=== PATIENT | male | born 1970 | race Caucasian/White ===

== ENCOUNTER 2017-07-04 07:05 | Day surgery (SDC) | payer OTHER ==
[~2017-07-04] VITALS: Ht 172.7 cm; Wt 124.7 kg
--- NOTE | 2017-07-04 10:03 | NUR ---
07/04/17 1003 Lora Benavidez 8364-PATIENT ARRIVED TO PACU ON 6L MASK O2 SAT 100% NONAROUSABLE. DRESSING TO LEFT HAND CDI. ELEVATED ON PILLOW. 1001-PATIENT AROUSING EYES OPEN, ABLE TO WIGGLE FINGERS REPORTS NUMBNESS/TINGLING DENIES PAIN DOZES BACK TO SLEEP.
[2017-07-04] MEDS ORDERED: IBUPROFEN600 MG PO (10:13)
[2017-07-04] MEDS ORDERED: OXYCODON-ACETA1 EAC2 PO (10:14)
[2017-07-04] MEDS ORDERED: MAPAP325 MG PO (10:14)
--- NOTE | 2017-07-04 10:39 | NUR ---
CRACKERS AND ICED WATER GIVEN. CALL LIGHT W/IN REACH. FAMILY @ BS.
--- NOTE | 2017-07-04 12:50 | NUR ---
PT STEADY ON FEET WITH ONE PERSON ASSIST. PT DRESSES SELF. PT REPORTING 3/10 PAIN THAT IS TOLERABLE. PT DENIES NAUSEA AND VOIDS WITHOUT DIFFICULTY. DISCHARGE INSTRUCTIONS REVIEWED WITH PT AND . QUESTIONS ANSWERED. PT AND VERBALIZE UNDERSTANDING OF DISCHARGE INSTRUCTIONS.
--- NOTE | 2017-07-05 06:31 | OR ---
[facility] [address] [place], [place] [address] Signed DATE OF OPERATION: 07/04/2017 SURGEON: Smita Esteban MD PREOPERATIVE DIAGNOSIS: Left carpal tunnel syndrome. POSTOPERATIVE DIAGNOSIS: Left carpal tunnel syndrome. PROCEDURE: Left carpal tunnel release. ANESTHESIA: General with tourniquet (Shade Bajwa CRNA). INDICATION: This 46-year-old white man has a BMI of 41.8, is a patient of Dr. Kevin Kaminski. He has had rather typical left carpal tunnel symptoms. He has had symptoms on the right as well, but the right hand is not as severe as the left. He is ruuju-xwgi-svvodwgo. His symptoms of pain in the left hand are in the distribution of the median nerve. He has nocturnal symptoms as well. He has had this problem for many years. Twenty years ago, he tried wrist splints, which were not that beneficial. He has undergone neurologic testing by Dr. [place] confirming left carpal tunnel syndrome (median neuropathy at the wrist). Right-sided testing could not be undertaken due to equipment malfunction at the time, however, he is anticipating that to be done in the near future. He is admitted at this time to undergo a left carpal tunnel release. Understand the risks of bleeding, infection, nerve injury, failure to cure his problems, and recurrent disease. Understanding this, he wished to proceed. FINDINGS: IV access was impressively difficult to be obtained in the left forearm or wrist and therefore, a Juan block anesthetic was not feasible. On that basis, he underwent general anesthesia. A tourniquet was used as usual and good exsanguination of the arm was accomplished with a bloodless field. The transverse carpal ligament was easily identified and tense and firm as would be expected. The underlying median nerve had good health without sign of hourglass deformity or other particular problem. Transection of the transverse carpal ligament was extended to the distal wrist crease and onto the palmar fat. DESCRIPTION OF PROCEDURE: The patient was brought to the operating room, given a general LMA-type anesthetic. Preoperative antibiotic Ancef was given. Sequential compression device and stockings Electronically Signed By: SMITA ESTEBAN MD 07/05/17 0631 PATIENT NAME: MELLO AGUILAR OPERATIVE REPORT DATE OF : 74 PHYSICIAN: SMITA ESTEBAN MD REPORT #: [id number] REPORT IS CONFIDENTIAL AND NOT TO BE RELEASED WITHOUT AUTHORIZATION [facility] [address] [place] [id number] Signed were used. Exsanguination of the left hand and arm up to the level of the tourniquet above the elbow was undertaken by myself with an Esmarch bandage. The tourniquet was inflated to 250 mmHg pressure. Removal of the Esmarch bandage showed a well exsanguinated extremity. The hand and forearm were prepared with a chlorhexidine solution and draped sterilely. A rolled blue towel was placed behind the wrist and a hand retractor was used to splay the palm with optimal exposure. A curvilinear incision was made near the thenar eminence and the space between the thenar and hypothenar creases. Dissection was carried through the dermis sharply and through the palmaris longus fascial coalescence down to the transverse carpal ligament. This was incised and a small bit of muscle incised as well. Once the median nerve was identified beneath it, the hemostat was placed beneath the transverse carpal ligament and it was transected onto the palmar fascia without problem. The nerve itself appeared reasonably healthy without sign of hourglass deformity or other abnormality. Hemostat was then placed more proximally and the ligament transected under direct visualization with a 15 blade and more proximally with tenotomy scissors under direct visualization. The motor branch was never actually seen. A small amount of needlepoint electrocautery was used to the muscle of the thenar eminence. A 10 mL of 0.25% Marcaine with epinephrine was injected locally. The skin was then closed with interrupted 2-0 nylon suture. A Xeroform gauze was applied as was a small rolled gauze. Subsequently, a Flexicon wrap and a cock-up wrist splint. An Gonzales wrap was then applied. Pressure was applied to the palmar aspect and the tourniquet was deflated. Pressure was applied to the operative site until rubor presented and receded. He was ultimately extubated and transported to recovery room in good condition having suffered no complications. Sponge, needle, and instruments counts reported as correct x3. MD TAMI Dunaway/MODL /[id number] cc: Smita [place] MD Electronically Signed By: SMITA ESTEBAN MD 07/05/17 0631 PATIENT NAME: MELLO AGUILAR OPERATIVE REPORT DATE OF : 74 PHYSICIAN: SMITA ESTEBAN MD REPORT #: [id number] REPORT IS CONFIDENTIAL AND NOT TO BE RELEASED WITHOUT AUTHORIZATION [facility] [address] [facility] [place] [address] Signed Kevin Kaminski MD Electronically Signed By: SMITA ESTEBAN MD 07/05/17 0631 PATIENT NAME: MELLO AGUILAR OPERATIVE REPORT DATE OF : 74 PHYSICIAN: SMITA ESTEBAN MD REPORT #: [id number] REPORT IS CONFIDENTIAL AND NOT TO BE RELEASED WITHOUT AUTHORIZATION
--- NOTE | 2017-07-05 07:18 | NUR ---
PT'S AND MOTHER IN, MOTHER SOMEWHAT ANXIOUS. LAST TIME SHE WAS AT [facility], HER PASSED. PART OF THE REASON SHE IS HERE TODAY. RN SHIVANI IN TO FINISH PREP FOR SURGERY. I EXTENDED A BLESSING, WILL FOLLOW NEEDED.
== END 2017-07-04 12:50 | disposition home or self-care (01) ==
LOC: OPS 07:05 → DS 07:05 → OPS 08:15
PROVIDERS: Surgery
PROC: 01N50ZZ Release Median Nerve, Open Approach (ICD-10-PCS; principal; 2017-07-04 08:15)
DX: G56.02 Carpal tunnel syndrome, left upper limb (principal); J45.909 Unspecified asthma, uncomplicated; Z88.0 Allergy status to penicillin; Z98.818 Other dental procedure status
CPT/HCPCS: 01810; J0690; J2405; J2704; J3010; J7120

== ENCOUNTER 2017-07-25 08:48 | Day surgery (SDC) | payer OTHER ==
[~2017-07-25] VITALS: Ht 172.7 cm; Wt 124.7 kg
[~2017-07-25 08:48] MED LIST: IBUPROFEN600 MG PO; MAPAP325 MG PO; OXYCODON-ACETA1 EAC2 PO
--- NOTE | 2017-07-25 11:36 | NUR ---
PT RESTING COMFORTABLY, WAITING PATIENTLY FOR SURGERY. HIS MOTHER AND DAUGHTER BY HIS SIDE. HE HAS HAD THE OTHER HAND OPERATED ON A LITTLE OVER A MONTH AGO AND SEEMS VERY PLEASED WITH THE RESULTS. NO QUESTIONS, PT REQUESTED PRAYER. WILL FOLLOW NEEDED
[2017-07-25] MEDS ORDERED: HYDROCODON-ACE1 EA10 PO (12:24)
[2017-07-25] MEDS ORDERED: IBUPROFEN600 MG PO (12:24)
[2017-07-25] MEDS ORDERED: MAPAP325 MG PO (12:25)
[2017-07-25] MEDS ORDERED: CEFAZOLIN SODIU IV (12:25)
--- NOTE | 2017-07-25 17:55 | OR ---
[facility] [address] [facility] [place] [address] Signed DATE OF OPERATION: 07/25/2017 SURGEON: mSita Esteban MD PREOPERATIVE DIAGNOSIS: Right carpal tunnel syndrome. POSTOPERATIVE DIAGNOSIS: Right carpal tunnel syndrome. PROCEDURE: Right carpal tunnel release. SURGEON: Smita Esteban MD. ANESTHESIA: Belvue block with sedation (Shade Oakes CRNA) and local 5 mL of 0.25% Marcaine without epinephrine. INDICATION: This 46-year-old, white man is a patient of Dr. Kevin Kaminski and has been identified as having bilateral carpal tunnel syndrome. He has undergone left carpal tunnel release a few weeks ago. Neurologic testing confirmed median neuropathy at the wrist bilaterally. He is admitted at this time to undergo right carpal tunnel release. Understand the risks of bleeding, infection, nerve injury, failure to cure his symptoms, and other unforeseen complications and he wishes to proceed. FINDINGS: The transverse carpal ligament was impressively dense and thickened. The underlying nerve did not look to be deformed in any way. Complete release was undertaken from the distal wrist crease down to the palmar fat. DESCRIPTION OF PROCEDURE: The patient was brought to the operating room, given a Juan block anesthetic. Preoperative antibiotic Ancef was given and sequential compression device stockings used. The exsanguination for the Belvue block was quite good. The right hand and arm were prepared with a chlorhexidine solution and draped sterilely. A rolled blue towel was placed behind the wrist and the malleable metal hand retractor used to expose the right palm nicely. The curvilinear incision was made rather small in size between the thenar Electronically Signed By: SMITA ESTEBAN MD 07/25/17 1755 PATIENT NAME: MELLO AGUILAR OPERATIVE REPORT DATE OF : 74 PHYSICIAN: SMITA ESTEBAN MD REPORT #: [id number] REPORT IS CONFIDENTIAL AND NOT TO BE RELEASED WITHOUT AUTHORIZATION [facility] [address] [place], [place] [address] Signed and hypothenar creases. Dissection carried through the subcutaneous tissue and along the palmaris longus longitudinally encountering ultimately the transverse carpal ligament. This was incised with all due care using loupe magnification and headlight illumination, allowing for insinuation of a mosquito hemostat beneath the transverse carpal ligament. The ligament was transected onto the palmar fat revealing the underlying median nerve. The median nerve did not appear to be deformed in any way. Hemostat was then placed proximally and under direct visualization, the transverse carpal ligament transected proximally as well. Tenotomy scissors used to transect it more proximally to the distal wrist crease. Good release was noted. The ligament was impressively thick. Irrigation was undertaken. There was no sign of tumor or other problem with the nerve. The skin was closed with interrupted 2-0 nylon suture. Xeroform gauze and a Flexicon dressing were applied as was a cock-up wrist splint and an Gonzales wrap. Pressure was applied to the operative site and the tourniquet was withdrawn at 22 minutes. Pressure was maintained on the operative site until rubor returned and receded from the hand. He was then taken to recovery room in good condition and suffered no complication. Sponge, needle, and instruments counts reported correct x3. MD TAMI Dunaway/GRACIEL /[id number] cc: MD Kevin Pate MD Electronically Signed By: SMITA ESTEBAN MD 07/25/17 1755 PATIENT NAME: MELLO AGUILAR OPERATIVE REPORT DATE OF : 74 PHYSICIAN: SMITA ESTEBAN MD REPORT #: [id number] REPORT IS CONFIDENTIAL AND NOT TO BE RELEASED WITHOUT AUTHORIZATION
== END 2017-07-25 13:21 | disposition home or self-care (01) ==
LOC: DS 08:48
PROVIDERS: Surgery
PROC: 01N50ZZ Release Median Nerve, Open Approach (ICD-10-PCS; principal; 2017-07-25 10:30)
DX: G56.01 Carpal tunnel syndrome, right upper limb (principal); J45.909 Unspecified asthma, uncomplicated; Z88.0 Allergy status to penicillin; Z98.818 Other dental procedure status; Z79.899 Other long term (current) drug therapy
CPT/HCPCS: 01810; J0690; J2704; J7120

== ENCOUNTER 2020-08-06 06:27 | Day surgery (SDC) | payer OTHER ==
[~2020-08-06] VITALS: Ht 172.7 cm; Wt 125.0 kg
[~2020-08-06 06:27] MED LIST changes: +CEFAZOLIN SODIU IV; +HYDROCODON-ACE1 EA10 PO
--- NOTE | 2020-08-06 09:41 | NUR ---
08/06/20 0941 Samantha Tavreas 0928- PT ARRIVES TO PACU NONAROUSABLE TO NOXIOUS STIMULI WITH AN OPA IN PLACE. RESP EVEN AND UNLABORED. PT SOUNDS LIKE HE IS OBSTRUCTING. OXYGEN SAT LOW TO MID 90'S ON 6L VIA MASK. JAW THRUST PERFORMED AND OXYGEN SAT INCREASED TO THE HIGH 90'S ON 6L VIA MASK. 0932- PT AROUSING TO NOXIOUS STIMULI. PT OPENS HIS EYES. PT INSTRUCTED TO OPEN HIS MOUTH. PT IS ABLE TO DO THIS AND OPA REMOVED. OXYGEN MASK REPLACED.
[2020-08-06] MEDS ORDERED: ACETAMINOPHEN500 MG PO (09:54)
[2020-08-06] MEDS ORDERED: IBUPROFEN600 MG PO (09:54)
[2020-08-06] MEDS ORDERED: PERCOCET 7.5-31 EACH PO (09:55)
--- NOTE | 2020-08-06 10:27 | NUR ---
PT ALERT, ORIENTED AND SUPPORTED BY HIS ENEDELIA. SHE WILL RETURN AT [place]. PT SOMEWHAT ANXIOUS, ALL QUESTIONS ASKED ANSWERED. DR ESTEBAN IN, GAVE BLESSING AND WILL FOLLOW NEEDED
--- NOTE | 2020-08-06 12:02 | NUR ---
STEADY ON FEET WITH ONE PERSON STAND BY ASSIST FOR AMBULATION TO BR. PT VOIDS 450 ML CLEAR YELLOW URINE. CONTINUES TO DENY NAUSEA AND REPORTS 2/10 PAIN.
--- NOTE | 2020-08-09 12:00 | OR ---
[facility] [address] [place], [place] [address] Signed DATE OF OPERATION: 08/06/2020 SURGEON: Smita Esteban MD PREOPERATIVE DIAGNOSES: 1. Incarcerated umbilical hernia. 2. Morbid obesity. POSTOPERATIVE DIAGNOSES: 1. Incarcerated umbilical hernia. 2. Morbid obesity. 3. Incarcerated omentum. PROCEDURE: 1. Repair of incarcerated non-strangulated umbilical hernia. 2. Implantation of Prolene mesh underlay technique. ANESTHESIA: General endotracheal; Jono Masters CRNA and local 20 mL of 0.25% Marcaine with epinephrine. INDICATION: This 49-year-old morbidly obese white man is a patient of Dr. Edil Kaminski. He has had an increasingly painful nonreducible umbilical hernia. He has no problems of urinary outlet obstructive symptoms. No problem of constipation or chronic cough, only morbid obesity. He appears to have a nonreducible umbilical hernia. He shows no sign of bowel obstruction. He is admitted to undergo repair of the hernia. He understands the risks of bleeding, infection, recurrence, and other unforeseen complications. FINDINGS: Indeed an incarcerated hernia was noted. The incarcerated viscus was omentum. Photographs were taken. The fascial defect was approximately 3 cm. Reduction of the omentum was able to be accomplished with partial fascial release superiorly. The redundant hernia sac was amputated and the hernia sac closed. A space was developed in the properitoneal space allowing for implantation of Prolene mesh with a 4 cm overlap and ultimately reapproximation of the fascia. DESCRIPTION OF PROCEDURE: The patient was brought to the operating room, given a general endotracheal anesthetic. Preoperative antibiotic Ancef was given. Sequential compression device stockings were Electronically Signed By: SMITA ESTEBAN MD 08/09/20 [facility] PATIENT NAME: MELLO AGUILAR OPERATIVE REPORT DATE OF : 74 REPORT #: [id number] PHYSICIAN: SMITA ESTEBAN MD PCP: EDIL KAMINSKI MD REPORT IS CONFIDENTIAL AND NOT TO BE RELEASED WITHOUT AUTHORIZATION [facility] [address] [place], [place] [address] Signed used and heparin subcutaneously administered. The abdomen was clipped and prepared with Betadine based solution and draped sterilely. A curvilinear incision was made to the lateral aspect of the umbilical fold. Dissection was carried through the dermis with electrocautery and using blunt dissection, the nonreducible hernia was dissected free circumferentially. It was freed from the overlying dermis of the umbilicus. The hernia sac was opened and a bit of fluid was noted and incarcerated viscus proved to be omentum as suspected. The hernia sac was more fully opened and omental adhesions to the hernia sac were noted, thus accounting for its non-reducibility. The fascial defect was about 3 cm or so at most and would not allow for reduction of the omentum even when freed from the adhesions of the hernia sac. On that basis, the midline fascia was incised superiorly, ultimately allowing for reduction of the omentum into the abdominal cavity. The properitoneal space was dissected free with blunt electrocautery dissection circumferentially allowing for a 3 cm margin. The redundant hernia sac was oversewn with 2-0 Vicryl suture doubly applied and redundant hernia sac amputated and passed for pathology. The properitoneal space was once again examined and found to have no sign of opening to the peritoneal cavity. A segment of Prolene mesh was cut to a circular configuration and secured in the properitoneal space with interrupted 0 Prolene sutures with Prolene pledgets. The fascial edges were reapproximated with interrupted 0 Prolene with Prolene pledgets as well. Henry layer was reapproximated with interrupted 2-0 Vicryl and skin closed with running subcuticular 3-0 Vicryl and Steri-Strips were applied as well as a silver sponge dressing. Upon unexpected and abrupt emergence, the patient has significant coughing and straining and abdominal pressure applied to the operative site, but a "popping" sound could be indeed felt suggesting disruption of the hernia repair. The patient was given paralytic agent and maintained in anesthesia and the dressing was removed and the abdomen prepared once again and the skin opened. There was some serosanguineous fluid in the depths of the wound. The fascial reapproximation had completely disrupted, though the properitoneal mesh remained in place without disruption. Additional sutures of 0 Prolene with Prolene pledgets were used to secure the mesh and the fascia once again reapproximated as before. The wound was then closed as before. Steri-Strips once again applied as was the silver sponge dressing. The patient was then allowed to emerge in a deeper state and had no coughing, straining, or other adverse effects. He was then transferred to recovery room in good condition having suffered no complications. Sponge, needle, and instrument counts were reported as correct x3. Smita Esteban MD Electronically Signed By: SMITA ESTEBAN MD 08/09/20 1200 PATIENT NAME: MELLO AGUILAR OPERATIVE REPORT DATE OF : 74 REPORT #: [id number] PHYSICIAN: SMITA ESTEBAN MD PCP: EDIL KAMINSKI MD REPORT IS CONFIDENTIAL AND NOT TO BE RELEASED WITHOUT AUTHORIZATION [address] [address] Signed /GRACIE /[id number] cc: Edil Kaminski MD Copies: EDIL KAMINSKI MD ~ Electronically Signed By: SMITA ESTEBAN MD 08/09/20 1200 PATIENT NAME: MELLO AGUILAR OPERATIVE REPORT DATE OF : 74 REPORT #: [id number] PHYSICIAN: SMITA ESTEBAN MD PCP: EDIL KAMINSKI MD REPORT IS CONFIDENTIAL AND NOT TO BE RELEASED WITHOUT AUTHORIZATION
== END 2020-08-06 12:12 | disposition home or self-care (01) ==
LOC: DS 06:27
PROVIDERS: ATTEND Surgery
PROC: 0WUF0JZ Supplement Abdominal Wall with Synthetic Substitute, Open Approach (ICD-10-PCS; principal; 2020-08-06 06:45)
DX: K42.0 Umbilical hernia with obstruction, without gangrene (principal); K46.0 Unspecified abdominal hernia with obstruction, without gangrene; J45.909 Unspecified asthma, uncomplicated; E66.01 Morbid (severe) obesity due to excess calories; G56.01 Carpal tunnel syndrome, right upper limb; Z88.0 Allergy status to penicillin; Z79.1 Long term (current) use of non-steroidal anti-inflammatories (NSAID); Z79.899 Other long term (current) drug therapy
CPT/HCPCS: 00750; A9270; C1781; J0131; J1644; J3010; J7121

== ENCOUNTER 2024-05-30 11:00 | Day surgery (SDC) | payer OTHER ==
[~2024-05-30] VITALS: Ht 172.7 cm; Wt 129.5 kg
[~2024-05-30 11:00] MED LIST changes: +ACETAMINOPHEN500 MG PO; +IBLOOD GLUCOSE TEST STRIP 1 EA TEST VI PRN; +LACTATED RINGER'S 1,000 ML IV SCH; +LIDOCAINE HCL 1% 5 ML SDV INJ ONE; +MIDAZOLAM HCL 5 MG/5 ML VIAL IV PRN; +PERCOCET 7.5-31 EACH PO; +fentaNYL citrate 100 MCG/2 ML VIAL IV PRN
[2024-05-30 11:15] VITALS: BP 147/83
[2024-05-30] MEDS ORDERED: MIDAZOLAM HCL 5 MG/5 ML VIAL ONE (12:14)
[2024-05-30] MEDS ORDERED: fentaNYL citrate 100 MCG/2 ML VIAL ONE (12:14)
[2024-05-30 13:35] VITALS: BP 151/99
--- NOTE | 2024-05-30 13:59 | NUR ---
05/30/24 1359 Maria Isabel Wolff 1313- PT ARRIVES TO THE PACU WITH EYES OPEN. PT ABLE TO ANSWER QUESTIONS ACCORDINGLY. PT DENIES PAIN OR NAUSEA. ABDOMEN IS SOFT AND NONDISTENDED. PT ENCOURAGED TO PASS GAS. ALL MONITORS PUT IN PLACE. NC WITH 2L OF O2. 1315- PT EASILY FALLS BACK TO SLEEP AND IS REACTIVE TO VERBAL STIMULI. 1320- O2 TURNED OFF. MD AT BEDSIDE TALKING WITH PT. 1330- PT REQUESTS FOOD AND DRINK. CRACKERS AND JUICE PROVIDED. PT TOLERATED WELL. PT DC INSTRUCTIONS PROVIDED. NO QUESTIONS OR CONCERNS AT THIS TIME. 1339- MONITORS REMOVED. IV REMOVED. PT GETTING DRESSED INDEPENDENTLY WITH NO ISSUE. 1342-PT WALKS INDEPENDENTLY WITH A STEADY AND EVEN GAIT TO THE RESTROOM. PT PASSING GAS. 1345-PT DC FROM PACU. ALL BELONGINGS WITH PT. NO QUESTIONS OR CONCERNS.
--- NOTE | 2024-06-02 14:27 | OR ---
[facility] [address] [place], [place] [address] Signed DATE OF OPERATION: 05/30/2024 SURGEON: Smita Esteban MD PREOPERATIVE DIAGNOSIS: Colon screening. POSTOPERATIVE DIAGNOSIS: Normal colon to cecum. PROCEDURE: Total colonoscopy to cecum. ANESTHESIA: Intravenous sedation fentanyl 100 mcg and Versed 5 mg. INDICATION: This 53-year-old white man is a patient of ALEX Blake. He was referred for colon screening. He has never had full-length colonoscopy in the past. He did undergo flexible sigmoidoscopy at age [age] years old, which was negative; his indication at that time was "spastic colon." He has no current symptoms of bleeding, diarrhea or constipation and no family history of colon cancer. He understands risk of bleeding, infection, and perforation related to colonoscopy and wished to proceed. FINDINGS: The prep was excellent. Complete colonoscopy was undertaken of the cecum with full intubation of the cecum. There were no findings of polyps, diverticular formation, colitis, or cancer. He did have a single internal hemorrhoid which appeared to be asymptomatic without sign of thrombosis or bleeding. PROCEDURE IN DETAIL: The patient was brought to the endoscopy suite and placed in lateral decubitus position and given intravenous sedation to the point of slurred speech and nystagmus. Full cardiopulmonary monitoring was maintained. Digital rectal examination was normal. An Olympus video colonoscope was passed in the rectum and manipulated throughout the colon ultimately intubating the cecum itself. The ileocecal valve and appendiceal orifice were normal. The scope was withdrawn from that point and examination throughout showed no sign of abnormality specifically no polyps, diverticular formation, colitis, or cancer. Retroflexed view in the rectum did confirm a single internal hemorrhoid Electronically Signed By: SMITA ESTEBAN MD 06/02/24 1427 PATIENT NAME: MELLO AGUILAR OPERATIVE REPORT DATE OF : 74 REPORT #: [id number] PHYSICIAN: SMITA ESTEBAN MD PCP: JOSE PRESLEY REPORT IS CONFIDENTIAL AND NOT TO BE RELEASED WITHOUT AUTHORIZATION [facility] [address] [place], [place] [address] Signed which was without sign of problem. The scope was straightened, withdrawn and removed. The patient was taken to the recovery room in good condition. CONCLUDING DIAGNOSIS: Normal colon other than a small hemorrhoid. PLAN: Recommend repeat colonoscopy in 10 years, sooner if symptoms should develop and recommend high-fiber diet generally speaking as regard to hemorrhoidal disease. He will return to the ongoing care of ALEX Blake. MD TAMI Dunaway/JOSÉ MIGUEL /[id number] cc: ALEX Blake Copies: ~ Electronically Signed By: SMITA ESTEBAN MD 06/02/24 1427 PATIENT NAME: MELLO AGUILAR OPERATIVE REPORT DATE OF : 74 REPORT #: [id number] PHYSICIAN: SMITA ESTEBAN MD PCP: JOSE PRESLEY REPORT IS CONFIDENTIAL AND NOT TO BE RELEASED WITHOUT AUTHORIZATION
== END 2024-05-30 13:45 | disposition home or self-care (01) ==
LOC: DS 11:00
PROVIDERS: ATTEND Surgery
PROC: 0DJD8ZZ Inspection of Lower Intestinal Tract, Via Natural or Artificial Opening Endoscopic (ICD-10-PCS; principal; 2024-05-30 12:00)
DX: Z12.11 Encounter for screening for malignant neoplasm of colon (principal); K64.8 Other hemorrhoids; G56.02 Carpal tunnel syndrome, left upper limb; E66.01 Morbid (severe) obesity due to excess calories; K42.9 Umbilical hernia without obstruction or gangrene; Z68.41 Body mass index [BMI] 40.0-44.9, adult
CPT/HCPCS: 99153; G0500; J2250; J3010; J7121